=== PATIENT | female | born 1980 | race Hispanic/Latino ===

== ENCOUNTER 2018-05-11 10:16 | Emergency (ER) | payer MEDICAID ==
[2018-05-11 10:23] VITALS: BP 128/79
--- NOTE | 2018-05-11 11:26 | XRay Report ---
ROUTINE CHEST, TWO VIEWS: HISTORY: chest pain. The trachea, heart, mediastinal contour, lung fernandez and bony thorax are unremarkable. IMPRESSION: Unremarkable chest x-ray.
[2018-05-11] MEDS ORDERED: DUONEB *Not for PRN Use IH ONE ×2 (11:56→11:58)
[2018-05-11] MEDS ORDERED: DECADRON IM ONE (11:56)
[2018-05-11] MEDS ORDERED: TESSALON PERLES PO ONE (11:57)
--- NOTE | 2018-05-11 12:02 | Emergency Department Report ---
Minor Respiratory - HPI Chief Complaint: Upper Respiratory Infection Stated Complaint: BAD COUGH/CHEST PAIN Time Seen by Provider: 05/11/18 11:43 Duration: 3 Days Pain Location: Chest Severity: moderate Minor Respiratory: Yes Able to Tolerate Fluids, Yes Cough, No Rhinorrhea, No Sore Throat, No Ear Pain, No Sick Contacts, No Hemoptysis, No Chest Pain, No Shortness of Breath, No Fever Other History: Patient is a 37-year-old female who comes in with a barky cough. She has no fever. She has no chest pain. There is no shortness of breath. She has not asthmatic. She is a never smoker. The cough has been for 3 days. Nothing has made it better or worse. Home medications none. Past medical history none ED Review of Systems ROS: Stated complaint: BAD COUGH/CHEST PAIN Other details as noted in HPI Comment: All other systems reviewed and negative Constitutional: denies: see HPI, fever ENT: denies: ear pain, throat pain Respiratory: see HPI, cough Cardiovascular: denies: dyspnea on exertion Endocrine: denies: excessive sweating Gastrointestinal: denies: nausea Genitourinary: denies: urgency Musculoskeletal: denies: back pain Skin: denies: rash Neurological: denies: weakness Psychiatric: denies: depression Hematological/Lymphatic: denies: easy bleeding ED Past Medical Hx - Past Medical History Previous Medical History?: No - Surgical History Past Surgical History?: Yes Hx Cholecystectomy: Yes Additional Surgical History: c/s - Family History Family history: no significant - Social History Smoking Status: Never Smoker Substance Use Type: Marijuana - Medications Home Medications: Home Medications Medication Instructions Recorded Confirmed Last Taken Type Azithromycin [Zithromax Z-JAMES] 250 mg PO DAILY #6 tablet 05/11/18 Unknown Rx Benzonatate [Tessalon Perles] 100 mg PO Q8HR PRN #20 capsule 05/11/18 Unknown Rx Cetirizine HCl [ZyrTEC] 10 mg PO DAILY #30 capsule 05/11/18 Unknown Rx Fluticasone [Flonase] 1 spray NS QDAY #1 bottle 05/11/18 Unknown Rx predniSONE [Deltasone] 20 mg PO DAILY #5 tablet 05/11/18 Unknown Rx Minor Respiratory Exam - Exam General: Vital signs noted. No distress. Alert and acting appropriately. HEENT: Yes Moist Mucous Membranes, No Pharyngeal Erythema, No Pharyngeal Exudates, No Rhinorrhea, No Conjuctival Injection, No Frontal Tenderness, No Maxillary Tenderness Ear: Neither TM Bulge, Neither TM Erythema, Neither EAC Pain, Neither EAC Discharge Neck: Yes Supple, No Adenopathy Lungs: Yes Good Air Exchange, Yes Wheezes, Yes Cough, No Ronchi, No Stridor, No Labored Respirations, No Retractions, No Use of Accessory Muscles, No Other Abnormal Lung Sounds Heart: Yes Regular (HR 90 ON EXAM, PT COUGHING), No Murmur Abdomen: Yes Normal Bowel Sounds, No Tenderness, No Peritoneal Signs Skin: No Rash, No Edema Neurologic: Alert and oriented, no deficits. Musculoskeletal: Unremarkable. ED Course Vital Signs 05/11/18 10:21 Temperature 98.1 F Pulse Rate 96 H Respiratory 20 Rate Blood Pressure 128/79 O2 Sat by Pulse 99 Oximetry ED Medical Decision Making - Radiology Data Radiology results: report reviewed, image reviewed nap - Medical Decision Making xray nap no fever no cp no sob no recent travel medicated with decadron and duoneb in ER with dec cough dc home with dc poc and follow up Vital Signs 05/11/18 05/11/18 10:21 12:02 Temperature 98.1 F Pulse Rate 96 H Pulse Rate [ 92 H Bilateral] Respiratory 20 Rate Respiratory 20 Rate [Bilateral ] Blood Pressure 128/79 O2 Sat by Pulse 99 Oximetry - Differential Diagnosis RO PNA Critical care attestation.: If time is entered above; I have spent that time in minutes in the direct care of this critically ill patient, excluding procedure time. ED Disposition Clinical Impression: Bronchitis, Cough Disposition: DC-01 TO HOME OR SELFCARE Is pt being admited?: No Does the pt Need Aspirin: No Condition: Stable Instructions: Acute Bronchitis (ED) Additional Instructions: MEDS ORDERED TODAY HYDRATE WELL FOLLOW UP WITH PCP REFERRAL BELOW DIET AND ACTIVITY TOLERATED Prescriptions: predniSONE [Deltasone] 20 mg PO DAILY #5 tablet Fluticasone [Flonase] 1 spray NS QDAY #1 bottle Benzonatate [Tessalon Perles] 100 mg PO Q8HR PRN #20 capsule PRN Reason: Cough Azithromycin [Zithromax Z-JAMES] 250 mg PO DAILY #6 tablet Cetirizine HCl [ZyrTEC] 10 mg PO DAILY #30 capsule Referrals: WENDY COX MD [Primary Care Provider] - 3-5 Days Time of Disposition: 12:00
== END 2018-05-11 12:35 | disposition home or self-care (01) ==
LOC: ED 10:16
DX: J40 Bronchitis, not specified as acute or chronic (principal); Z90.49 Acquired absence of other specified parts of digestive tract
CPT/HCPCS: 71046; 93005; 93010; 94640; 96372; 99283; J1100

== ENCOUNTER 2020-07-12 16:06 | Emergency (ER) | payer MEDICAID ==
[2020-07-12 18:09] VITALS: BP 133/89
--- NOTE | 2020-07-12 19:20 | Emergency Department Report ---
ED Female HPI - General Chief complaint: Abdominal Pain Stated complaint: ABD PAIN/NAUSEA Time Seen by Provider: 07/12/20 19:06 Source: patient Mode of arrival: Ambulatory Limitations: No Limitations - History of Present Illness Initial comments: Patient presents for pelvic pain that began a couple days ago. She has associated nausea. She states that she has a small amount of white vaginal discharge but denies any green, yellow, itching, burning, lesions. She denies any fever, vomiting, diarrhea, urinary symptoms. No past medical history. Al lergy to penicillin. Last menstrual cycle June 25. States that she is sexually active without protection and does have a concern for STDs. pt states she last had a pap smear a year ago which she believes was abnormal but she never followed up. - Related Data Previous Rx's Medication Instructions Recorded Last Taken Type Azithromycin [Zithromax Z-JAMES] 250 mg PO DAILY #6 tablet 05/11/18 Unknown Rx Benzonatate [Tessalon Perles] 100 mg PO Q8HR PRN #20 capsule 05/11/18 Unknown Rx Cetirizine HCl [ZyrTEC] 10 mg PO DAILY #30 capsule 05/11/18 Unknown Rx Fluticasone [Flonase] 1 spray NS QDAY #1 bottle 05/11/18 Unknown Rx predniSONE [Deltasone] 20 mg PO DAILY #5 tablet 05/11/18 Unknown Rx Naproxen 375 mg PO BID PRN #14 tablet. 07/12/20 Unknown Rx traMADoL [Ultram 50 MG tab] 50 mg PO Q6HR PRN #10 tablet 07/12/20 Unknown Rx Allergies Allergy/AdvReac Type Severity Reaction Status Date / Time Penicillins Allergy Hives Verified 01/08/18 11:11 ED Review of Systems ROS: Stated complaint: ABD PAIN/NAUSEA Other details as noted in HPI Comment: All other systems reviewed and negative ED Past Medical Hx - Past Medical History Previous Medical History?: No - Surgical History Past Surgical History?: Yes Hx Cholecystectomy: Yes Additional Surgical History: c/s - Social History Smoking Status: Never Smoker Substance Use Type: Marijuana - Medications Home Medications: Home Medications Medication Instructions Recorded Confirmed Last Taken Type Azithromycin [Zithromax Z-JAMES] 250 mg PO DAILY #6 tablet 05/11/18 Unknown Rx Benzonatate [Tessalon Perles] 100 mg PO Q8HR PRN #20 capsule 05/11/18 Unknown Rx Cetirizine HCl [ZyrTEC] 10 mg PO DAILY #30 capsule 05/11/18 Unknown Rx Fluticasone [Flonase] 1 spray NS QDAY #1 bottle 05/11/18 Unknown Rx predniSONE [Deltasone] 20 mg PO DAILY #5 tablet 05/11/18 Unknown Rx Naproxen 375 mg PO BID PRN #14 tablet.dr 07/12/20 Unknown Rx traMADoL [Ultram 50 MG tab] 50 mg PO Q6HR PRN #10 tablet 07/12/20 Unknown Rx ED Physical Exam - General Limitations: No Limitations General appearance: alert, in no apparent distress - Head Head exam: Present: atraumatic, normocephalic - Eye Eye exam: Present: normal appearance - ENT ENT exam: Present: mucous membranes moist - Respiratory Respiratory exam: Present: normal lung sounds bilaterally. Absent: respiratory distress, wheezes, rales, rhonchi, stridor, chest wall tenderness, accessory muscle use, decreased breath sounds, prolonged expiratory - Cardiovascular Cardiovascular Exam: Present: regular rate, normal rhythm, normal heart sounds. Absent: systolic murmur, diastolic murmur, rubs, gallop - GI/Abdominal GI/Abdominal exam: Present: soft, normal bowel sounds. Absent: distended, tenderness, guarding, rebound, rigid - External exam: Present: normal external exam. Absent: erythema, swelling, lesions, lacerations, ecchymosis, bleeding Speculum exam: Present: vaginal discharge (small amount clear), cervical discharge (small amount clear), other (patient safety officer: bev khan PA-C, there is a 3mm area of white tissue to the right side of the cervix, no erythema ). Absent: erythema, vaginal bleeding, foreign body Bi-manual exam: Present: normal bi-manual exam. Absent: cervical motion tendernes, adnexal tenderness, adnexal mass - Neurological Exam Neurological exam: Present: alert, oriented X3 - Psychiatric Psychiatric exam: Present: normal affect, normal mood - Skin Skin exam: Present: warm, dry, intact ED Course Vital Signs 07/12/20 07/12/20 18:07 18:09 Temperature 98.6 F Pulse Rate 66 Respiratory 18 Rate Blood Pressure 133/89 [Right] O2 Sat by Pulse 99 Oximetry ED Medical Decision Making - Lab Data Result diagrams: 07/12/20 19:14 07/12/20 19:14 Lab Results 07/12/20 07/12/20 07/12/20 Range/Units 19:14 19:14 Unknown WBC 12.0 H (4.5-11.0) K/mm3 RBC 4.48 (3.65-5.03) M/mm3 Hgb 12.1 (10.1-14.3) gm/dl Hct 36.7 (30.3-42.9) % MCV 82 (79-97) fl MCH 27 L (28-32) pg MCHC 33 (30-34) % RDW 13.7 (13.2-15.2) % Plt Count 307 (140-440) K/mm3 Lymph % (Auto) 28.4 (13.4-35.0) % [place] % (Auto) 5.4 (0.0-7.3) % Eos % (Auto) 2.0 (0.0-4.3) % Baso % (Auto) 0.9 (0.0-1.8) % Lymph # (Auto) 3.4 (1.2-5.4) K/mm3 [place] # (Auto) 0.6 (0.0-0.8) K/mm3 Eos # (Auto) 0.2 (0.0-0.4) K/mm3 Baso # (Auto) 0.1 (0.0-0.1) K/mm3 Seg Neutrophils % 63.3 (40.0-70.0) % Seg Neutrophils # 7.6 (1.8-7.7) K/mm3 Sodium 141 (137-145) mmol/L Potassium 4.2 (3.6-5.0) mmol/L Chloride 105.9 (98-107) mmol/L Carbon Dioxide 26 (22-30) mmol/L Anion Gap 13 mmol/L BUN 12 (7-17) mg/dL Creatinine 0.5 L (0.6-1.2) mg/dL Estimated GFR > 60 ml/min BUN/Creatinine Ratio 24 % Glucose 105 H (65-100) mg/dL Calcium 9.8 (8.4-10.2) mg/dL Total Bilirubin 0.20 (0.1-1.2) mg/dL AST 16 (5-40) units/L ALT 13 (7-56) units/L Alkaline Phosphatase 102 (35-129) units/L Total Protein 7.3 (6.3-8.2) g/dL Albumin 4.6 (3.9-5) g/dL Albumin/Globulin Ratio 1.7 % Lipase 43 (13-60) units/L Urine Color Yellow (Yellow) Urine Turbidity Clear (Clear) Urine pH 5.0 (5.0-7.0) Ur Specific [place] 1.028 (1.003-1.030) Urine Protein 30 mg/dl (Negative) mg/dL Urine Glucose (UA) Neg (Negative) mg/dL Urine Ketones Neg (Negative) mg/dL Urine Blood Sm (Negative) Urine Nitrite Neg (Negative) Urine Bilirubin Neg (Negative) Urine Urobilinogen < 2.0 (<2.0) mg/dL Ur Leukocyte Esterase Neg (Negative) Urine WBC (Auto) 2.0 (0.0-6.0) /HPF Urine RBC (Auto) 5.0 (0.0-6.0) /HPF U Epithel Cells (Auto) 3.0 (0-13.0) /HPF Urine Mucus 3+ /HPF Vital Signs 07/12/20 07/12/20 18:07 18:09 Temperature 98.6 F Pulse Rate 66 Respiratory 18 Rate Blood Pressure 133/89 [Right] O2 Sat by Pulse 99 Oximetry - Radiology Data Radiology results: report reviewed Ordering Physician: ELSIE ROSARIO Date of Service: 07/12/20 Procedure(s): US transvaginal Accession Number(s): [id number] cc: ELSIE ROSARIO CLINICAL DATA: pelvic pain TECHNICAL DATA: Ultrasound, pelvic (nonobstetric), real-time with image documentation; transabdominal and transvaginal imaging with Doppler was performed. FINDINGS: The uterus is of normal size and echogenicity. There are no uterine masses. Endometrial thickness is measured 1 cm The right and left ovaries are of symmetric size and echogenicity. 2.5 cm left ovarian cyst There are no ovarian or adnexal masses. Doppler imaging demonstrates normal vascular flow to both ovaries. There is no significant quantity of free fluid dependently within the pelvis. IMPRESSION: Left ovarian cyst GUIDELINES FOR IMAGING OF OVARIAN--ADNEXAL CYST: WOMEN OF REPRODUCTIVE AGE: 1. Cysts <=3 cm: Normal physiologic findings; at the discretion of the interpreting physician whether or not to describe them in the imaging report; do not need follow-up. 2. Cysts >3 and <=5 cm: Should be described in the imaging report with a statement that they are almost certainly benign; do not need follow-up. 3. Cysts >5 and <=7 cm: Should be described in the imaging report with a statement that they are almost certainly benign; yearly follow-up with US recommended. 4. Cysts >7 cm: Since these may be difficult to assess completely with US, further imaging with magnetic resonance (MR) or surgical evaluation should be considered. POSTMENOPAUSAL WOMEN: 1. Cysts <=1 cm: Are clinically inconsequential; at the discretion of the interpreting physician whether or not to describe them in the imaging report; do not need follow-up. 2. Cysts >1 and <=7 cm: Should be described in the imaging report with statement that they are almost certainly benign; yearly follow-up, at least initially, with US recommended. Some practices may opt to increase the lower size threshold for follow-up from 1 cm to as high as 3 cm. One may opt to continue follow-up annually or to decrease the frequency of follow-up once stability or decrease in size has been confirmed. Cysts in the larger end of this range should still generally be followed on a regular basis. 3. Cysts >7 cm: Since these may be difficult to assess completely with US, further imaging with MR or surgical evaluation should be considered. Signer Name: Flavio Copeland MD Signed: 07/12/2020 8:54 PM Workstation Name: [id number] Transcribed By: Dictated By: Flavio Copeland MD Electronically Authenticated By: Flavio Copeland MD Signed Date/Time: 07/12/202053 DD/ 51 TD/TT: - Medical Decision Making Patient presents for pelvic pain that began a couple days ago. She has associated nausea. She states that she has a small amount of white vaginal discharge but denies any green, yellow, itching, burning, lesions. She denies any fever, vomiting, diarrhea, urinary symptoms. No past medical history. Allergy to penicillin. Last menstrual cycle June 3. States that she is sexually active without protection and does have a concern for STDs. pt states she last had a pap smear a year ago which she believes was abnormal but she never followed up. Vitals are stable. On exam:patient safety officer: bev khan PA-C, there is a 3mm area of white tissue to the right side of the cervix, no erythema, small amount of clear vaginal and cervical discharge, no CMT, no adnexal tenderness or masses. Labs are stable. UA without evidence of UTI. Wet prep is negative. G/C swab sent. Patient states that she would like to await results and does not want prophylactic treatment at this time. Discussed all results with patient and the importance of [facility] follow-up. Advised patient that it is very important for her to follow-up given that she had an abnormal Pap smear last year I discussed the risks associated with not following up. Given prescription for naproxen and tramadol. Advised patient Please take medication as prescribed as needed. Follow-up with [facility]. It is very important that you follow-up. Please go to medical records in 1 week for results of your gonorrhea chlamydia swab to see if these were positive, if positive you will need treatment. Follow-up with your primary care doctor. Return to emergency room for any new or worsening symptoms. Avoid sexual intercourse, have any partners tested and treated as well, follow-up with the clinic or the health apartment for full STD panel. Critical care attestation.: If time is entered above; I have spent that time in minutes in the direct care of this critically ill patient, excluding procedure time. ED Disposition Clinical Impression: Pelvic pain, Abnormality of cervix Ovarian cyst Qualifiers: Laterality: left Qualified Code(s): N83.202 - Unspecified ovarian cyst, left side Disposition: DC-01 TO HOME OR SELFCARE Is pt being admited?: No Does the pt Need Aspirin: No Condition: Stable Instructions: Pelvic Pain, Female, Ovarian Cyst, Abdominal Pain (ED) Additional Instructions: Please take medication as prescribed as needed. Follow-up with [facility] MACH[facility]. It is very important that you follow-up. Please go to medical records in 1 week for results of your gonorrhea chlamydia swab to see if these were positive, if positive you will need treatment. Follow-up with your primary care doctor. Ret urn to emergency room for any new or worsening symptoms. Avoid sexual intercourse, have any partners tested and treated as well, follow-up with the clinic or the health apartment for full STD panel. Prescriptions: Naproxen 375 mg PO BID PRN #14 tablet. PRN Reason: Pain, Moderate (4-6) traMADoL [Ultram 50 MG tab] 50 mg PO Q6HR PRN #10 tablet PRN Reason: Pain , Severe (7-10) Referrals: JORY RAE MD [Staff Physician] - 2-3 Days PRIMARY CAREMD [Primary Care Provider] - 2-3 Days CHARLOTTE HASSAN MD [Staff Physician] - 2-[address] [facility] [Provider Group] - 2-3 Days Time of Disposition: 21:21 Print Language: SETSWANA
[2020-07-12 19:24] LABS: Basophils # (Auto) 0.1 K/mm3 (0.0-0.1); Basophils % (Auto) 0.9 % (0.0-1.8); Eosinophils # (Auto) 0.2 K/mm3 (0.0-0.4); Hematocrit 36.7 % (30.3-42.9); Hemoglobin 12.1 gm/dl (10.1-14.3); Lymphocytes # (Auto) 3.4 K/mm3 (1.2-5.4); Lymphocytes % (Auto) 28.4 % (13.4-35.0); Mean Corpuscular HGB Conc 33 % (30-34); Mean Corpuscular Volume 82 fl (79-97); Monocytes # (Auto) 0.6 K/mm3 (0.0-0.8); Monocytes % (Auto) 5.4 % (0.0-7.3); Platelet Count 307 K/mm3 (140-440); Red Blood Count 4.48 M/mm3 (3.65-5.03); Red Cell Distribution Width 13.7 % (13.2-15.2)
[2020-07-12 19:47] LABS: Alanine Aminotransferase 13 units/L (7-56); Albumin 4.6 g/dL (3.9-5); Blood Urea Nitrogen 12 mg/dL (7-17); Calcium 9.8 mg/dL (8.4-10.2); Hemolysis Index 2
[2020-07-12 19:49] LABS: BUN/Creatinine Ratio 24
[2020-07-12 19:58] LABS: Bilirubin,Urine NEG (Negative); Blood,Urine SM (Negative); Color,Urine Yellow (Yellow); Mucus,Urine 3+ /HPF; Urobilinogen,Urine < 2.0 mg/dL (<2.0)
--- NOTE | 2020-07-12 20:58 | Ultrasound Report ---
CLINICAL DATA: pelvic pain TECHNICAL DATA: Ultrasound, pelvic (nonobstetric), real-time with image documentation; transabdominal and transvagina l imaging with Doppler was performed. FINDINGS: The uterus is of normal size and echogenicity. There are no uterine masses. Endometrial thickness is measured 1 cm The right and left ovaries are of symmetric size and echogenicity. 2.5 cm left ovarian cyst There are no ovarian or adnexal masses. Doppler imaging demonstrates normal vascular flow to both ovaries. There is no significant quantity of free fluid dependently within the pelvis. IMPRESSION: Left ovarian cyst GUIDELINES FOR IMAGING OF OVARIAN--ADNEXAL CYST: WOMEN OF REPRODUCTIVE AGE: 1. Cysts <=3 cm: Normal physiologic findings; at the discretion of the interpreting physician whether or not to describe them in the imaging report; do not need follow-up. 2. Cysts >3 and <=5 cm: Should be described in the imaging report with a statement that they are almo st certainly benign; do not need follow-up. 3. Cysts >5 and <=7 cm: Should be described in the imaging report with a statement that they are almo st certainly benign; yearly follow-up with US recommended. 4. Cysts >7 cm: Since these may be difficult to assess completely with US, further imaging with magne tic resonance (MR) or surgical evaluation should be considered. POSTMENOPAUSAL WOMEN: 1. Cysts <=1 cm: Are clinically inconsequential; at the discretion of the interpreting physician whet her or not to describe them in the imaging report; do not need follow-up. 2. Cysts >1 and <=7 cm: Should be described in the imaging report with statement that they are almost certainly benign; yearly follow-up, at least initially, with US recommended. Some practices may opt to increase the lower size threshold for follow-up from 1 cm to as high as 3 cm. One may opt to anh nue follow-up annually or to decrease the frequency of follow-up once stability or decrease in size h as been confirmed. Cysts in the larger end of this range should still generally be followed on a regu lar basis. 3. Cysts >7 cm: Since these may be difficult to assess completely with US, further imaging with MR or surgical evaluation should be considered. Signer Name: Flavio Copeland MD Signed: 07/12/2020 8:54 PM Workstation Name: [id number]
== END 2020-07-12 21:27 | disposition home or self-care (01) ==
LOC: ED 16:06
DX: N83.209 Unspecified ovarian cyst, unspecified side (principal); R10.2 Pelvic and perineal pain; R87.619 Unspecified abnormal cytological findings in specimens from cervix uteri; F12.10 Cannabis abuse, uncomplicated; Z90.49 Acquired absence of other specified parts of digestive tract; Z98.890 Other specified postprocedural states; Z79.899 Other long term (current) drug therapy; Z88.0 Allergy status to penicillin
CPT/HCPCS: 36415; 76830; 76856; 80053; 81001; 83690; 85025; 87210; 87591